=== PATIENT | female | born 1990 | race Caucasian/White ===

== ENCOUNTER 2020-07-22 08:50 | Emergency (ER) | payer OTHER ==
[2020-07-22 09:04] VITALS: BP 148/85
--- NOTE | 2020-07-22 09:34 | ED Physician Documentation ---
History of Present Illness - Stated complaint Stated Complaint: R THUMB LAC - Chief complaint Chief Complaint: Laceration - History obtained from History obtained from: Patient - Additonal information Additional information: Patient comes emergency department complaining of a laceration to her right thumb tip which occurred 3 days ago. She states that she was using a mandolin slicer and sustained a laceration when her thumb made contact with the blade. She states she has not had any trouble with the wound, but when she came to work at her job in the [employer] this morning, she was told that the cut would need to be covered or she could not work. Patient is here to see if she can have her laceration Dermabond. Patient denies any swelling or redness. No drainage. No other complaints at this time. Review of Systems Ten Systems: 10 systems reviewed and negative Constitutional: reports: Reviewed and negative Eyes: reports: Reviewed and negative Ears: reports: Reviewed and negative Nose: reports: Reviewed and negative Throat: reports: Reviewed and negative Cardiac: reports: Reviewed and negative Respiratory: reports: Reviewed and negative GI: reports: Reviewed and negative : reports: Reviewed and negative Skin: reports: Laceration (s) Musculoskeletal: reports: Reviewed and negative Neurologic: reports: Reviewed and negative Psychiatric: reports: Reviewed and negative Endocrine: reports: Reviewed and negative Immunocompromised: reports: Reviewed and negative PD PAST MEDICAL HISTORY - Present Medications Home Medications: Ambulatory Orders Medication Instructions Recorded Confirmed No Known Home Medications 07/22/20 07/22/20 - Allergies Allergies/Adverse Reactions: Allergies Allergy/AdvReac Type Severity Reaction Status Date / Time No Known Drug Allergies Allergy Verified 07/22/20 09:05 PD ED PE NORMAL - Vitals Vital signs reviewed: Yes - General General: Alert and oriented X 3, No acute distress - HEENT HEENT: Atraumatic, PERRL, EOMI, Moist mucous membranes - Neck Neck: Supple, no meningeal sign - Respiratory Respiratory: No respiratory distress - Derm Derm: Normal color, Warm and dry, No rash, Other (1 cm flap laceration noted to right thumb tip. Flap is pink and appears viable. No drainage. Wound is well adhesed with 1 mm of separation and elevation of skin around the edge of the flap. No foreign bodies.) - Extremities Extremities: No deformity - Neuro Neuro: Alert and oriented X 3 - Psych Psych: Normal mood, Normal affect Results - Vitals Vitals: Vital Signs - 24 hr 07/22/20 08:56 Temperature 36.9 C Heart Rate 78 Respiratory 18 Rate Blood Pressure 148/85 H O2 Saturation 100 Oxygen O2 Source Room air PD MEDICAL DECISION MAKING - ED course Complexity details: considered differential, d/w patient ED course: I discussed with the patient that given it has been 3 days, we cannot perform any kind of repair on the wound, including Dermabond. The patient would like to go back to work, and I have offered her a Steri-Strip over the wound, which will be breathable but still offer some protection. We can also dressed the wound to provide a little more protection so that the patient can perform her duties. Patient is agreeable to this plan. Departure - Departure Disposition: 01 Home, Self Care Clinical Impression: Laceration Condition: Stable Instructions: ED Laceration Small Superf No Sutr
== END 2020-07-22 09:43 | disposition home or self-care (01) ==
LOC: ED 08:50
DX: S61.011A Laceration without foreign body of right thumb without damage to nail, initial encounter (principal); W27.4XXA Contact with kitchen utensil, initial encounter; Y93.G1 Activity, food preparation and clean up
CPT/HCPCS: 99281; 99282

== ENCOUNTER 2021-07-19 17:59 | Emergency (ER) | payer OTHER ==
[2021-07-19 18:23] VITALS: BP 113/63
[2021-07-19 18:40] LABS: BILIRUBIN,URINE NEGATIVE (NEGATIVE); GLUCOSE, URINE (UA) NEGATIVE (NEGATIVE); KETONES,URINE (UA) NEGATIVE (NEGATIVE); LEUKOCYTE ESTERASE, URINE SMALL (NEGATIVE); NITRITE,URINE NEGATIVE (NEGATIVE); OCCULT BLOOD,URINE MODERATE (NEGATIVE); PH,URINE 7.5 PH (5.0-7.5); PROTEIN,URINE 30 mg/dL (NEGATIVE); UROBILINOGEN,URINE 0.2 (NORMAL) E.U./dL (NORMAL)
[2021-07-19 18:45] LABS: CLARITY,URINE HAZY (CLEAR); HCG UR QUAL NEGATIVE
[2021-07-19] MEDS ORDERED: PHENAZOPYRIDINE 100 MG TABLET PO STA (18:51)
[2021-07-19] MEDS ORDERED: NITROFURANTOIN MACRO 100 MG CAPSULE PO STA (18:51)
--- NOTE | 2021-07-19 18:53 | ED Physician Documentation ---
PD HPI FEMALE - Stated complaint Stated Complaint: FEMALE - Chief complaint Chief Complaint: UTI - History obtained from History obtained from: Patient, Family - History of Present Illness Timing - onset: How many days ago (3) Timing - duration: Days (3) Timing - details: Gradual onset Pain level max: 4 Pain level max: 2 Associated symptoms: Dysuria, Urinary frequency, Hematuria Contributing factors: No: , Exposed to STD Similar symptoms before: Diagnosis (UTI) Review of Systems Constitutional: denies: Fever, Chills GI: denies: Vomiting, Diarrhea Skin: denies: Rash Musculoskeletal: denies: Neck pain, Back pain PD PAST MEDICAL HISTORY - Past Medical History Past Medical History: No - Present Medications Home Medications: Ambulatory Orders Medication Instructions Recorded Confirmed Nitrofurantoin [Macrobid] 100 mg PO BID #10 cap 07/19/21 Phenazopyridine HCl [Pyridium] 200 mg PO TID PRN #6 tablet 07/19/21 - Allergies Allergies/Adverse Reactions: Allergies Allergy/AdvReac Type Severity Reaction Status Date / Time No Known Drug Allergies Allergy Verified 07/19/21 18:23 - Social History Does the pt smoke?: No Smoking Status: Never smoker PD ED PE NORMAL - Vitals Vital signs reviewed: Yes - General General: Alert and oriented X 3, No acute distress - HEENT HEENT: Moist mucous membranes - Neck Neck: Supple, no meningeal sign - Cardiac Cardiac: RRR - Respiratory Respiratory: No respiratory distress, Clear bilaterally - Abdomen Abdomen: Soft, Non tender, Non distended - Back Back: No CVA TTP - Derm Derm: Warm and dry - Neuro Neuro: Alert and oriented X 3 - Psych Psych: Normal mood, Normal affect Results - Vitals Vitals: Vital Signs - 24 hr 07/19/21 18:20 Temperature 36.6 C Heart Rate 68 Respiratory 15 Rate Blood Pressure 113/63 O2 Saturation 100 Oxygen O2 Source Room air - Labs Labs: Laboratory Tests 07/19/21 18:31 Urine Color YELLOW Urine Clarity HAZY Urine pH 7.5 Ur Specific [place] 1.020 Urine Protein 30 H Urine Glucose (UA) NEGATIVE Urine Ketones NEGATIVE Urine Occult Blood MODERATE H Urine Nitrite NEGATIVE Urine Bilirubin NEGATIVE Urine Urobilinogen 0.2 (NORMAL) Ur Leukocyte Esterase SMALL H Urine RBC 11-25 H Urine WBC 6-10 H Ur Squamous Epith Cells FEW Squamous Urine Bacteria Moderate H Ur Microscopic Review INDICATED Urine Culture Comments INDICATED Urine HCG, Qual NEGATIVE PD MEDICAL DECISION MAKING - ED course Complexity details: reviewed results, considered differential, d/w patient ED course: Patient with a UTI. No evidence of pyelonephritis or sepsis. We will have her follow-up with her doctor for further care as needed. Will place on antibiotics for home. Patient counseled regarding signs and symptoms for which I believe and urgent re-evaluation would be necessary. Patient with good understanding of and agreement to plan and is comfortable going home at this time This document was made in part using voice recognition software. While efforts are made to proofread this document, sound alike and grammatical errors may occur. Departure - Departure Disposition: Home, Self Care Clinical Impression: Urinary tract infection Qualifiers: Urinary tract infection type: acute cystitis Hematuria presence: without hematuria Qualified Code(s): N30.00 - Acute cystitis without hematuria Condition: Good Instructions: ED UTI Cystitis Female Follow-Up: your,doctor as needed [Other] Prescriptions: Nitrofurantoin [Macrobid] 100 mg PO BID #10 cap Phenazopyridine HCl [Pyridium] 200 mg PO TID PRN #6 tablet PRN Reason: dysuria Comments: Take all antibiotics until gone. Return if you worsen. Follow-up with your doctor as needed for further care. Discharge Date/Time: 07/19/21 19:09
[2021-07-19 18:57] LABS: BACTERIA,URINE Moderate /HPF (None Seen); SQUAMOUS EPITHELIAL CELL,UR FEW Squamous (<= Few)
== END 2021-07-19 19:09 | disposition home or self-care (01) ==
LOC: ED 17:59
DX: N30.01 Acute cystitis with hematuria (principal)
CPT/HCPCS: 81001; 81025; 87086; 87181; 99283; 99284; A9270; 81003

== ENCOUNTER 2022-01-06 20:32 | Emergency (ER) | payer OTHER ==
--- NOTE | 2022-01-06 21:14 | XRAY Report ---
PROCEDURE: Foot 3 View RT INDICATIONS: TTP dorsum foot, near cuboid. no injury, runner TECHNIQUE: 3 views of the foot were acquired. COMPARISON: None FINDINGS: Bones: No fractures or dislocations. No suspicious bony lesions. Soft tissues: No tibiotalar joint effusion. Achilles tendon appears normal. IMPRESSION: Normal right foot Reviewed by: Shayne Vaca on 01/06/2022 9:13 PM [facility] Approved by: Shayne Vaca on 01/06/2022 9:13 PM [facility] Station ID: [id number]
--- NOTE | 2022-01-06 21:18 | ED Physician Documentation ---
History of Present Illness - Stated complaint Stated Complaint: RT FOOT PX - Chief complaint Chief Complaint: Ext Problem - History obtained from History obtained from: Patient - History of Present Illness Timing: Today Pain level max: 6 Pain level now: 4 - Additonal information Additional information: 31-year-old female presents to the emergency department with right foot pain. She states that she had been running earlier today, tonight she was at home when she felt a cramping and warmth in the midfoot. She states that the foot began to hurt and now she has pain over the dorsum of the foot. Does not recall any specific injury. Had some tingling as well, but that is improving. Has never had similar symptoms previously. Worse with walking, better with rest Review of Systems Constitutional: denies: Fever, Chills GI: denies: Vomiting, Diarrhea Skin: denies: Rash Musculoskeletal: denies: Neck pain, Back pain PD PAST MEDICAL HISTORY - Past Medical History Past Medical History: No - Past Surgical History Past Surgical History: No - Present Medications Home Medications: Ambulatory Orders Medication Instructions Recorded Confirmed Nitrofurantoin [Macrobid] 100 mg PO BID #10 cap 07/19/21 Phenazopyridine HCl [Pyridium] 200 mg PO TID PRN #6 tablet 07/19/21 - Allergies Allergies/Adverse Reactions: Allergies Allergy/AdvReac Type Severity Reaction Status Date / Time No Known Drug Allergies Allergy Verified 01/06/22 20:39 - Living Situation Living Arrangement: reports: At home - Social History Does the pt smoke?: No Smoking Status: Never smoker PD ED PE NORMAL - Vitals Vital signs reviewed: Yes - General General: Alert and oriented X 3, No acute distress - HEENT HEENT: Moist mucous membranes - Neck Neck: Supple, no meningeal sign - Respiratory Respiratory: No respiratory distress - Derm Derm: Warm and dry - Extremities Extremities: Other - Neuro Neuro: Alert and oriented X 3 - Free text exam Free text exam: Tenderness to palpation over the cuboid on the midfoot. No swelling. No deformity. No pain with dorsiflexion, plantar flexion or external rotation of the foot, however there is pain with internal rotation of the foot. The pain is all near the midfoot. Neurovascularly intact. Brisk cap refill. Results - Vitals Vitals: Vital Signs - 24 hr 01/06/22 01/06/22 20:39 21:56 Temperature 36.6 C 37.5 C Heart Rate 77 83 Respiratory 16 18 Rate Blood Pressure 122/72 111/69 O2 Saturation 100 99 Oxygen O2 Source Room air - Rads (name of study) R foot xray Radiology: Final report received, EMP read contemporaneously, See rad report (No acute abnormality) PD MEDICAL DECISION MAKING - ED course Complexity details: reviewed results, re-evaluated patient, considered differential, d/w patient ED course: Unclear etiology of the patient's symptoms. We will treat as a soft tissue injury. Differential would also include microfractures. Given crutches. Will make her weightbearing as tolerated. No acute findings on x-ray. If she does not improve with passive treatment, would recommend MRI with her doctor. Patient counseled regarding signs and symptoms for which I believe and urgent re-evaluation would be necessary. Patient with good understanding of and agreement to plan and is comfortable going home at this time This document was made in part using voice recognition software. While efforts are made to proofread this document, sound alike and grammatical errors may occur. Departure - Departure Disposition: 01 Home, Self Care Clinical Impression: Foot pain, right Condition: Good Instructions: ED Sprain Foot, ED Acute Pain [facility] Follow-Up: your,doctor in 1 week [Other] Comments: Your x-ray does not show any acute abnormalities today. Please follow-up with your doctor for further care. Please return if you worsen. This should improve on its own. This likely represents a soft tissue injury. If your symptoms continue, your doctor may want to perform an MRI of your foot to evaluate for any stress fractures. Discharge Date/Time: 01/06/22 21:56
[2022-01-06 21:57] VITALS: BP 111/69
== END 2022-01-06 21:56 | disposition home or self-care (01) ==
LOC: ED 20:32
DX: M79.671 Pain in right foot (principal)
CPT/HCPCS: 99282; 99283